=== PATIENT | female | born 1950 | race African-American/Black ===

== ENCOUNTER → 2019-03-23 | Outpatient (CLI) | payer BC ==
--- NOTE | 2019-03-23 12:16 | KCIC ---
Bone mineral density exam History: Postmenopausal, diabetes, sarcoidosis, hyperthyroidism Comparison: None Findings: Bone mineral density examination utilizing DEXA was performed. Left hip bone mineral density of 0.923 g/cm2 corresponds with a T score -0.2, Z score 0.4. The bone mineral density of the lumbar spine was 1.103 g/cm2 which corresponds with a T-score of 0.5, Z score 1.8. By World Congress on Osteoporosis criteria, a T score of 0 to-1 SD is considered to be within normal limits. A T score of -1 to -2.5 SD is considered osteopenia. A T score less than -2.5 SD is considered osteoporosis Impression: 1. There is normal bone density of the left hip and the lumbar spine. Electronically signed by: Jorge Tabor MD (03/23/2019 12:13 PM) [facility]
--- NOTE | 2019-03-23 15:24 | KCIC ---
Bilateral digital screening mammograms: Reason for examination: Routine screening. Comparison is made to previous study dated 08/15/2016. Interpretation was made with the benefit of CAD. The skin shows a parenchymal density inferiorly at approximately the 6:00 B position which probably represents a mole. There also appear to be small lesions probably representing mles on the inferior left breast. The nipples show no abnormalities. No abnormal axillary lymph nodes are seen. The breast parenchyma is heterogeneously dense. (Breast density: Category C.) There appears however to be a nodular density in the subareolar position of the right breast. Further evaluation with ultrasound is recommended. There are no other dominant masses, suspicious calcifications or architectural distortion. Impression: Nodular density in the subareolar position of the right breast. Recommend further evaluation with ultrasound. Your patient's mammogram demonstrates that she has dense breast tissue (breast density category C or D), which could hide abnormalities, and if she has other risk factors for breast cancer that have been identified, she might benefit from supplemental screening tests that may be suggested by you as her ordering physician. Dense breast tissue, in and of itself, is a relatively common condition. Therefore, this information is not provided to cause undue concern, but rather to raise your awareness and to promote discussion with your patient regarding the presence of other risk factors, in addition to dense breast tissue. Your patient's mammography results will be sent to her. BI-RAD Category 0: Incomplete. Needs additional imaging evaluation. "Our facility is accredited by the [employer] Mammography [employer]." This patient's information has been entered into a reminder system for the patient to be notified with the results of her examination and a target date for the next mammogram. Electronically signed by: Vicky Hamlin MD (03/23/2019 3:00 PM) [email or web address]
== END | disposition home or self-care (01) ==
LOC: KCIC DEXA 10:00
PROVIDERS: ATTEND Family Medicine
DX: Z12.31 Encounter for screening mammogram for malignant neoplasm of breast (principal); Z13.820 Encounter for screening for osteoporosis; N64.89 Other specified disorders of breast; E11.9 Type 2 diabetes mellitus without complications; E05.90 Thyrotoxicosis, unspecified without thyrotoxic crisis or storm; D86.9 Sarcoidosis, unspecified; Z78.0 Asymptomatic menopausal state
CPT/HCPCS: 77067; 77080

== ENCOUNTER → 2019-03-30 | Outpatient (CLI) | payer BC ==
--- NOTE | 2019-03-30 14:40 | KCIC ---
Right breast ultrasound: Reason for examination: Nodular density on screening mammogram. Comparison is made to mammographic exam dated 03/23/2019. Right whole breast ultrasound including evaluation of all 4 quadrants and the retroareolar and axillary regions of the right breast was performed. In the retroareolar 3:00 position and corresponding to the area of mammographic concern, there is a 2.1 x 1.9 cm hypoechoic nodule in parallel orientation which shows some mild lobulation and some posterior acoustic shadowing. This could represent a fibroadenoma but malignancy cannot be excluded and further evaluation with ultrasound-guided biopsy is recommended. No other cystic or solid nodules are seen. No abnormal appearing lymph nodes are seen in the axilla. IMPRESSION: 2.1 cm nodule in parallel orientation. This may represent a fibroadenoma however malignancy cannot be excluded and further evaluation with ultrasound-guided biopsy is recommended. BI-RADS Category 4: Suspicious. These findings have been discussed with the patient and Dr. Shannon's nurse, Davey, was notified about these findings at 1435 on 03/30/2019. "Our facility is accredited by the [employer] Mammography [employer]." This patient's information has been entered into a reminder system for the patient to be notified with the results of her examination and a target date for the next mammogram. Electronically signed by: Vicky Hamlin MD (03/30/2019 2:37 PM) [email or web address]
== END | disposition home or self-care (01) ==
LOC: KCIC US 10:55
PROVIDERS: ATTEND Family Medicine
DX: N63.14 Unspecified lump in the right breast, lower inner quadrant (principal)
CPT/HCPCS: 76641

== ENCOUNTER → 2019-04-19 | Outpatient (CLI) | payer BC ==
--- NOTE | 2019-04-19 20:20 | RAD ---
Examination: US GUID NDL PLACE/ASPI/BX, DIGITAL DIAGNOSTIC RT History: Right breast mass Comparison/Correlation: 03/23/2019 mammographic exam and 03/30/2019 right breast ultrasound exam Findings: Risks and benefits of right breast ultrasound-guided biopsy were discussed with the patient. Informed consent was obtained. Medial approach was utilized. Cleansing with ChloraPrep was performed. Sterile drapes, sterile probe cover, and sterile gel were utilized. 17 cc 1 percent lidocaine was administered medial and lateral to the mass along the expected needle tract. Scalpel incision was made. Introducer was placed under ultrasound guidance. 12-gauge needle was utilized and 4 passes were made into the mass. Clip marker was then placed into the mass. Specimen sent to lab. The patient did experience more than expected bleeding which was controlled at the conclusion of the exam. Right MLO and right CC images were obtained by digital mammographic technique. The marker is identified at the expected site of the mass based on 03/23/2019 screening mammographic exam. Hematoma at this site may present but small. Focal asymmetry at the right lower inner breast corresponding to needle tract and associated small hematomas noted. The right breast is heterogeneously dense which may obscure detection of small masses. Impression: Successful biopsy of the right breast subareolar mass. The patient tolerated the procedure relatively well. Electronically signed by: Napoleon Hurd MD (04/19/2019 8:17 PM) UI[facility]2
--- NOTE | 2019-04-20 16:06 | PATHOLOGY ---
[facility] Accession Number: [id number] . 01 Material submitted: . breast - RIGHT BREAST MASS RETROAREOLAR 3:00 2.1CM. Modifiers: right . 01 Clinical history: . Right breast mass retroareolar 3:00 2.1 cm . 02 Diagnosis: Breast tissue, right retroareolar breast mass 3:00 needle biopsy: - Dense stromal sclerosis and focal mild duct ectasia. 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 02 Comment: Sections of the right retroareolar breast mass at 3:00 needle biopsy show dense stromal sclerosis with focal mild duct ectasia. There are a few atrophic lobular units within the sclerotic stroma. There is focal recent hemorrhage. There is no atypia or evidence of malignancy. Please correlate with radiographic findings. 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 02 Electronically signed: . Herminio Pimentel MD, Pathologist NPI- [id number] . 01 Gross description: . The specimen is received in formalin, labeled "Alina Cordero, right breast". Received are multiple needle cores of fibrofatty tissue measuring 1.3 x 1.0 x 0.2 cm in aggregate dimensions. The specimen is submitted entirely in cassettes A1 through A3. The cold ischemic time is less than 1 minute. The total formalin fixation time is 13 hours and 6 minutes. ([facility]; 04/19/2019) QAC/QAC 04/19/2019 1541 Local . 02 Pathologist provided ICD-10: N60.31, N60.41 . 02 CPT . 470343 Specimen Comment: A courtesy copy of this report has been sent to [phone], [phone]- Specimen Comment: [phone], Specimen Comment: Report sent to ,DR ZAPIEN / DR PYLE Performed at: [address] [id number] MD Karson Baca MD Phone: [phone] Performed at: 02 [facility] [address] [place], [place] [id number] MD Herminio Pimentel MD Phone: [phone]
== END ==
LOC: US 07:51
PROVIDERS: ATTEND Surgery
DX: N63.41 Unspecified lump in right breast, subareolar (principal)
CPT/HCPCS: 19083; 77065; 88305; C1713; 76942

== ENCOUNTER → 2019-10-27 | Outpatient (CLI) | payer BC ==
--- NOTE | 2019-10-27 13:02 | RAD ---
DATE: 10/27/2019 10:46 AM EXAM: DIGITAL DIAGNOSTIC RT HISTORY: Short-term follow-up benign right breast core needle biopsy. . Patient is 68 years old and reports a history of sarcoidosis requiring periodic surveillance chest x-rays which have contributed to her concern over radiation exposure for which she has thus far declined 3-D mammography. COMPARISON: 03/23/2019 screening mammogram, right breast ultrasound of 03/30/2019 and post biopsy mammogram of 04/19/2019. Technique: 2-D CC and MLO views of the right breast were obtained and reviewed with computer-aided detection. FINDINGS: Breast Density: HETERO The breast parenchyma Is heterogeneously dense, which could reduce sensitivity of mammography. Breast parenchyma level C S shaped biopsy marker in the anterior lobe of a bilobed circumscribed isodense 2.2 cm mammographic mass in the medial subareolar right breast corresponds with the mass seen on ultrasound targeted for biopsy. No developing mass, suspicious calcifications architectural distortion is evident. Since the mass is well seen on mammogram shows no suspicious interval change, additional imaging by targeted ultrasound is not necessary and is deferred in favor of returning to routine screening. Patient at this visit declined 3D mammographic imaging but on further discussion with me, she expressed a potential interest in having 3-D mammograms performed in the future. IMPRESSION: Benign findings on right diagnostic mammogram BI-RADS CATEGORY: 2 BENIGN FINDING(S) RECOMMENDED FOLLOW-UP: 12M 12 MONTH FOLLOW-UP Annual screening mammography is recommended, unless clinically indicated sooner based on symptoms or change in physical exam. She will next be due in 5 months. PQRS compliance statement: Patient information was entered into a reminder system with a target due date 03/24/2020 for the next mammogram. Mammography is a sensitive method for finding small breast cancers, but it does not detect them all and is not a substitute for careful clinical examination. A negative mammogram does not negate a clinically suspicious finding and should not result in delay in biopsying a clinically suspicious abnormality. "Our facility is accredited by the [employer] Mammography Program."
== END | disposition home or self-care (01) ==
LOC: MAMMO 10:00
PROVIDERS: ATTEND Surgery
DX: R92.2 Inconclusive mammogram (principal); N63.41 Unspecified lump in right breast, subareolar
CPT/HCPCS: 77065